=== PATIENT | male | born 1960 | race Caucasian/White ===

== ENCOUNTER 2024-08-02 04:52 | Emergency (ER) | payer OTHER, SELFPAY ==
[2024-08-02 04:52] VITALS: BMI 27.4
[2024-08-02 04:54] VITALS: BP 156/87
[2024-08-02 05:10] VITALS: BP 130/99
--- NOTE | 2024-08-02 06:06 | ED.GENMED ---
History of Present Illness
General
Chief Complaint: Skin Problem
Source: patient
Exam Limitations: none
Time Seen by Provider: 08/02/24 06:01
History of Present Illness
History of Present Illness:
See MDM
Past History
Past History
ED Past Medical History: None
ED Past Surgical History: None
Social History
Tobacco: Non-smoker
Alcohol: None
Phy Exam
Physical Exam
Physical Exam:
See MDM
Course
Orders/Labs/Results
Orders:
Orders
08/02/24 06:06
Dexamethasone Pf [Decadron] 10 mg PO NOW STA
Sulfamethox./Trimethoprim Ds [Bactrim Ds 800 mg/160 mg] 1 tablet PO NOW STA
Vital Signs
Initial and Last Documented VS:
Initial Vital Signs
Temp Pulse Resp BP Pulse Ox
98.2 F 96 16 156/87 99
08/02/24 04:54 08/02/24 04:54 08/02/24 04:54 08/02/24 04:54 08/02/24 04:54
Last Documented Vital Signs
Temp Pulse Resp BP Pulse Ox
98.2 F 96 16 130/99 94
08/02/24 04:54 08/02/24 04:54 08/02/24 04:54 08/02/24 05:10 08/02/24 05:11
MDM/Problems Addressed
Differential Diagnosis Includes:
HPI and MDM Narrative:
63-year-old male presenting with redness in his forehead and scalp. He does not recall injury or chemical exposure. Denies new soaps, habits or hair products. On exam, he does have redness around the scalp. There is a central area where there is
a small bite or excoriation. He believes he could have got by a bug. He denies fevers. He is well-appearing and nontoxic. We discussed that the erythema and swelling is either allergic reaction or cellulitic changes or potentially both. Will
start Bactrim and steroids
Physical exam
General: Well appearing and non-toxic
HEENT: protecting airway
Neck: appears supple
CV: No evidence of cyanosis
Resp: No accessory muscle use
Abd: Non-distended
Extremities: No deformities
Neuro: alert
Psych: Normal affect
Skin: Erythema and swelling to scalp with well-demarcated borders. It does extend to his mid forehead.
Problems Addressed including Acute and Chronic Conditions affecting care:
1. Scalp erythema and swelling
Acuity: acute
Prognosis: stable
Details: Potential allergic reaction versus cellulitis. Will start Bactrim and steroids
Differential Diagnosis (but not limited to): Allergic, cellulitis, erysipelas
Drug therapy (if applicable): OTC meds, please see d/c instruction regarding Rx drugs
Amount and/or Complexity of Data Reviewed
Clinical info obtained from: Patient
External data reviewed: N/A
Labs I independently reviewed (but not limited to): N/A
Radiology: N/A
Pulse Ox: not hypoxic
EKG independently reviewed: N/A
Media Marketing Coordinator: N/A
Critical Care: N/A
Risk of Complication:
Social Determinants of health: Good social support
Discussed with other providers: N/A
Escalation of Care includes Admit/Obs: After being observed in the Emergency Department, pt stable for discharge.
Occasional wrong word or 'sound a like' substitutions may have occurred due to the inherent limitations of voice recognition software. Read the chart carefully and recognize, using context, where substitutions have occurred.
*Critical Care Note
Total Time (30-74mins, 75-104mins- exclusive of procedures): Not Applicable
ED Attending Note
-
Portions of this chart may have been created with voice recognition software.� Occasional wrong word or��sound alike� substitutions may have occurred due to the inherent limitations of voice recognition software.
Discharge Plan
Departure
Patient Disposition: Home (Routine Discharge)
Date of Disposition: 08/02/24
Time of Disposition: 06:11
Patient with high blood pressure during this ER visit?: No
Discharge Problem:
Cellulitis
Instructions: Cellulitis (Skin Infection), Adult (DC)
Prescriptions:
New
prednisone 20 mg tablet
40 mg PO DAILY Qty: 10 0RF
sulfamethoxazole-trimethoprim [Bactrim DS] 800-160 mg tablet
1 tab PO BID 7 Days Qty: 14 0RF
Referrals:
Joe Lovell MD [Family Provider] -
Activity Restrictions/Additional Instructions:
It is not certain whether or not the redness on your forehead is an allergic reaction or an infection. Please take the steroids and antibiotics as prescribed. Please return for symptoms.
Please follow up with your doctor at the first available appointment, preferably this week.
Thank you for choosing [facility].
Interventions
Interventions:
*Risk Screen - Suicide Last Done: 08/02/24 05:26
*General Assessment Last Done: 08/02/24 04:54
*Neglect/Abuse Screening Last Done: 08/02/24 05:26
*ED COVID-19 Vaccine History Last Done: 08/02/24 04:54
ED-Skin Assessment Last Done: 08/02/24 05:25
Discharge Date and Time
Print Language: LATVIAN
[2024-08-02] MEDS: BACTRIM DS 800 MG/160 MG 1 TABLET PO (06:14)
[2024-08-02] MEDS: DECADRON 10 MG PO (06:15)
== END 2024-08-02 06:19 | disposition home or self-care (01) ==
LOC: EMR 04:52
PROVIDERS: EMERGENCY PHYSICIAN Student in an Organized Health Care Education/Training Program; FAMILY PHYSICIAN Internal Medicine
DX: L03.211 Cellulitis of face (principal)
CPT/HCPCS: 99283